=== PATIENT | male | born 1990 | race Caucasian/White ===

== ENCOUNTER 2019-03-17 15:50 | Emergency (ER) | payer MEDICAID, OTHER ==
[~2019-03-17] VITALS: Ht 170.2 cm; Wt 74.7 kg
[2019-03-17 15:58] VITALS: Ht 170.2 cm; Wt 74.7 kg
[2019-03-17] MEDS ORDERED: FAMOTIDINE 20 MG TAB PO STA (17:52)
[2019-03-17] MEDS ORDERED: LIDOCAINE/MYLANTA 40 ML BTL PO STA (17:52)
[2019-03-17] MEDS ORDERED: FAMO20TA18 PO (17:58)
--- NOTE | 2019-03-17 18:03 | ERD ---
ER Documentation Chief Complaint Chief Complaint ABD PAIN HPI 28-year-old male with a past medical history of questionable GERD, no surgical history who presents with 15-day complaint of left upper quadrant abdominal pain. Describes pain as needlelike pain which is intermittent and has been localized to the left upper quadrant without radiation. He denies associated nausea, vomiting, diarrhea, urinary symptoms. Pain not made worse or improved by eating or drinking. Has history of GERD but is not on any medications. He otherwise is without complaint. Reports all vaccinations up-to-date no allergies to medications. ROS All systems reviewed and are negative except as per history of present illness. Medications Home Meds Active Scripts Ibuprofen* (Motrin*) 600 Mg Tab, 600 MG PO Q6, #30 TAB Prov:AYE FLORES PA-C 03/17/19 Famotidine* (Famotidine*) 20 Mg Tablet, 20 MG PO BID, #60 TAB Prov:AYE FLORES PA-C 03/17/19 Allergies Allergies: Coded Allergies: No Known Allergy (Unverified , 03/17/19) FmHx Family History: No diabetes, No coronary disease, No other Physical Exam Vitals Vital Signs Date Temp Pulse Resp B/P (MAP) Pulse Ox O2 O2 Flow FiO2 Time Delivery Rate 03/17/19 97.9 50 18 109/55 97 Room Air 19:42 (73) 03/17/19 97.4 99 16 109/66 100 15:58 (80) Physical Exam I have reviewed the triage vital signs. Const: Well nourished, well developed, appears stated age Eyes: PERRL, no conjunctival injection HENT: NCAT, Neck supple without meningismus CV: RRR, Warm, well-perfused extremities RESP: CTAB, Unlabored respiratory effort GI: soft, tenderness to very deep palpation to left upper quadrant, rest of quadrants nontender, non-distended, no masses, no flank tenderness bowel sounds appropriate MSK: No gross deformities appreciated Skin: Warm, dry. No rashes Neuro: grossly non focal Psych: Appropriate mood and affect. Result Diagram: 03/17/191 03/17/19 1841 Results 24 hrs Laboratory Tests Test 03/17/19 18:41 White Blood Count 6.7 10^3/ul Red Blood Count 5.41 10^6/ul Hemoglobin 15.6 g/dl Hematocrit 47.8 % Mean Corpuscular Volume 88.4 fl Mean Corpuscular Hemoglobin 28.8 pg Mean Corpuscular Hemoglobin Concent 32.6 g/dl Red Cell Distribution Width 12.5 % Platelet Count 220 10^3/UL Mean Platelet Volume 10.8 fl Immature Granulocytes % 0.100 % Neutrophils % 46.2 % Lymphocytes % 47.0 % Monocytes % 4.2 % Eosinophils % 2.1 % Basophils % 0.4 % Nucleated Red Blood Cells % 0.0 /100WBC Immature Granulocytes # 0.010 10^3/ul Neutrophils # 3.1 10^3/ul Lymphocytes # 3.2 10^3/ul Monocytes # 0.3 10^3/ul Eosinophils # 0.1 10^3/ul Basophils # 0.0 10^3/ul Nucleated Red Blood Cells # 0.0 10^3/ul Urine Color YELLOW Urine Clarity SLIGHTLY CLOUDY Urine pH 7.0 Urine Specific [place] 1.016 Urine Ketones NEGATIVE mg/dL Urine Nitrite NEGATIVE mg/dL Urine Bilirubin NEGATIVE mg/dL Urine Urobilinogen NEGATIVE mg/dL Urine Leukocyte Esterase NEGATIVE Madhavi/ul Urine Microscopic RBC 0 /HPF Urine Microscopic WBC 1 /HPF Urine Amorphous Crystals MODERATE /HPF Urine Hemoglobin NEGATIVE mg/dL Urine Glucose NEGATIVE mg/dL Urine Total Protein NEGATIVE mg/dl Sodium Level 141 mmol/L Potassium Level 3.9 mmol/L Chloride Level 102 mmol/L Carbon Dioxide Level 26 mmol/L Anion Gap 13 Blood Urea Nitrogen 21 mg/dl Creatinine 0.94 mg/dl Est Glomerular Filtrat Rate mL/min > 60 mL/min Glucose Level 90 mg/dl Calcium Level 10.0 mg/dl Total Bilirubin 0.9 mg/dl Direct Bilirubin 0.00 mg/dl Indirect Bilirubin 0.9 mg/dl Aspartate Amino Transf (AST/SGOT) 34 IU/L Alanine Aminotransferase (ALT/SGPT) 25 IU/L Alkaline Phosphatase 96 IU/L Total Protein 8.4 g/dl Albumin 5.1 g/dl Globulin 3.30 g/dl Albumin/Globulin Ratio 1.54 Lipase 83 U/L Current Medications Medications Dose Sig/Kofi Start Time Status Last (Trade) Ordered Route PRN Stop Time Admin Dose Reason Admin Famotidine 20 mg ONCE STAT 03/17/19 DC 03/17/19 (Pepcid) PO 17:52 18:37 03/17/19 17:58 40 ml ONCE STAT 03/17/19 DC 03/17/19 Miscellaneous PO 17:52 18:37 Medication 03/17/19 17:58 (Gi Cocktail (2)) Procedures/MDM 28-year-old male who presents with left upper quadrant abdominal pain. He does not report any nausea, vomiting, diarrhea, fevers. I have very low suspicion for appendicitis, clinic pathology, pyelonephritis, abdominal aortic aneurysm, surgical biliary disease, pancreatitis, SBO, mesenteric ischemia, serious intra- abdominal bacterial illness, atypical ACS. His workup including labs and ultrasound of the abdomen have been unremarkable. He does have history of GERD and symptoms may be secondary to this chronic condition. Pt tolerating PO and pain controlled. ED course: Ultrasound without acute findings, lipase within normal limits, CBC and CMP without concerning findings, UA negative Plan: Pain control, famotidine, PMD follow-up Patient will be discharged with strict return precautions and follow up with primary MD within 12-24 hours for further evaluation. Patient understands that this still may have an early presentation of an emergent medical condition such as appendicitis that will require a recheck. DISPOSITION PLAN: We discussed follow up with the patient's primary care doctor within 24 to 48 hours. Patient counseled regarding my diagnostic impression and care plan. Prior to discharge all questions answered. Pt agrees with treatment plan and understands strict return precautions. Precautionary instructions provided including instructions to return to the ER if not improving or for any worsening or changing symptoms or concerns. Departure Diagnosis: Primary Impression: Abdominal pain Condition: Stable Patient Instructions: Abdominal Pain Additional Instructions: Call your primary care doctor TOMORROW for an appointment during the next 2-3 days.See the doctor sooner or return here if your condition worsens before your appointment time. You have been evaluated in the Emergency Department today for abdominal pain. Your evaluation did not show evidence of medical conditions requiring emergent intervention at this time. Please schedule an appointment with your primary care physician. Return to the Emergency Department if you experience worsening or uncontrolled pain, fevers 100.4F or greater, recurrent vomiting, inability to tolerate food or fluids by mouth, bloody stools or vomit, black or tarry stools, or any other concerning symptoms. Thank you for choosing us for your care. AYE FLORES PA-C Mar 17, 2019 18:03
[2019-03-17] MEDS ORDERED: IBUP-1542 PO (19:30)
[2019-03-17 19:42] VITALS: BP 109/55; PULSE 50; RESP 18
== END 2019-03-17 19:43 | disposition home or self-care (01) ==
LOC: FTE 15:50
DX: R10.12 Left upper quadrant pain (principal)
CPT/HCPCS: 36415; 76700; 80053; 81001; 83690; 85025; Z7502; Z7610; 81003